=== PATIENT | female | born 1975 | race Hispanic/Latino ===

== ENCOUNTER 2017-11-23 14:15 | Inpatient (IN) | payer BC ==
[~2017-11-23] VITALS: Ht 171.4 cm; Wt 82.4 kg
[2017-11-23 15:19] LABS: BASOPHILS % (AUTO) 0.5 % (0.0-5.0); EOSINOPHILS % (AUTO) 3.2 % (0.0-8.0); HEMATOCRIT 34.6 % (36-48); LYMPHOCYTES % (AUTO) 23.5 % (21.0-51.0); MEAN CORPUSCULAR HEMOGLOBIN 29.8 pg (27.0-33.0); MEAN CORPUSCULAR HGB CONC 33.5 g/dL (32.0-36.0); MEAN CORPUSCULAR VOLUME 88.8 fL (79-99); MONOCYTES % (AUTO) 6.5 % (3.0-13.0); NEUTROPHILS % (AUTO) 66.3 % (40.0-77.0); PLATELET COUNT (AUTO) 301 K/uL (130-400); RED CELL DISTRIBUTION WIDTH 17.2 % (11.0-15.5); WHITE BLOOD COUNT (AUTO) 8.1 K/uL (4.8-10.8)
[2017-11-23 15:46] VITALS: BP 108/55
[2017-11-23] MEDS ORDERED: IBUP-2077 PO (15:48)
[2017-11-23] MEDS ORDERED: FERR-82 PO (15:48)
[2017-11-24] VITALS (22 sets, daily range): BP systolic 101–124; BP diastolic 48–72
[2017-11-24] MEDS ORDERED: LEVOFLOXACIN 500 MG/D5W 100 ML 100 ML IV SCH (06:00)
[2017-11-24] MEDS ORDERED: CALDOLOR 800MG+NS 250ML 250 ML IV SCH (06:00)
[2017-11-24] MEDS: CLINDAMYCIN 600 MG/D5% WATER 50 ML IV SCH ×2 (06:00→08:40)
[2017-11-24] MEDS ORDERED: LACTATED RINGERS 1000ML 1,000 ML IV SCH (06:00)
[2017-11-24] MEDS ORDERED: CLINDAMYCIN 900 MG/D5% WATER 50 ML IV SCH (06:00)
[2017-11-24] MEDS ORDERED: CYAN50008 PO (07:55)
[2017-11-24] MEDS ORDERED: MIDAZOLAM HCL 1 MG/ML 2ML VIAL ONE (08:10)
[2017-11-24] MEDS ORDERED: FENTANYL CITRATE PF 50 MCG/1 ML 2ML VIAL ONE ×2 (08:10→09:12)
[2017-11-24] MEDS ORDERED: PROPOFOL 10 MG/ML 20ML VIAL IV ONE (08:10)
[2017-11-24] MEDS ORDERED: PHENYLEPHRINE HCL 10 MG/ML 1ML VIAL IV ONE ×2 (08:16→10:00)
[2017-11-24] MEDS ORDERED: ROCURONIUM BROMIDE 10MG/1ML 5ML VL ONE (08:25)
[2017-11-24] MEDS ORDERED: EPHEDRINE SULFATE 50 MG/ML AMPULE ONE (09:10)
[2017-11-24] MEDS ORDERED: NEOSTIGMINE 5MG/5ML SYR IV ONE (10:00)
[2017-11-24] MEDS ORDERED: SODIUM CHLORIDE 0.9% 10 ML VIAL ONE (10:00)
[2017-11-24] MEDS ORDERED: LIDOCAINE PF 2% 5ML ABBOJECT ONE (10:00)
[2017-11-24] MEDS ORDERED: DEXAMETHASONE SOD PHOSPHATE 10MG/ML 1ML VIAL ONE (10:00)
[2017-11-24] MEDS ORDERED: ACETAMINOPHEN-CODEINE 300/30MG TAB PO PRN (10:15)
[2017-11-24] MEDS ORDERED: DOCUSATE SODIUM 100 MG CAP PO PRN (10:15)
[2017-11-24] MEDS ORDERED: BISACODYL 10 MG SUPP.RECT RC PRN (10:15)
[2017-11-24] MEDS ORDERED: PROMETHAZINE HCL 25 MG/ML 1ML AMPULE IM ONE (10:19)
[2017-11-24] MEDS ORDERED: MEPERIDINE-PF 50 MG/ML SYG ONE ×2 (10:21→10:40)
[2017-11-24] MEDS: DEXTROSE 5 %-0.45 % NACL 1,000 ML IV PRN ×2 (11:33→21:24)
[2017-11-24] MEDS: MEPERIDINE-PF 75 MG/ML SYG IM PRN ×3 (12:33→23:28)
[2017-11-24] MEDS: PROMETHAZINE HCL 25 MG/ML 1ML AMPULE IM PRN ×3 (12:33→23:27)
[2017-11-24] MEDS: ACETAMINOPHEN-CODEINE 300/30MG TAB PO PRN (14:40)
[2017-11-24] MEDS: IBUPROFEN 800 MG TAB PO SCH ×2 (16:53→20:21)
[2017-11-24] MEDS: CALDOLOR 800MG+NS 250ML 250 ML IVPB SCH (17:53)
[2017-11-25] MEDS: CALDOLOR 800MG+NS 250ML 250 ML IVPB SCH (02:08)
[2017-11-25 03:38] VITALS: BP 96/57
[2017-11-25 06:31] LABS: HEMATOCRIT 29.8 % (36-48); MEAN CORPUSCULAR HEMOGLOBIN 29.8 pg (27.0-33.0); MEAN CORPUSCULAR HGB CONC 33.4 g/dL (32.0-36.0); MEAN CORPUSCULAR VOLUME 89.3 fL (79-99); PLATELET COUNT (AUTO) 249 K/uL (130-400); RED BLOOD CELL COUNT(AUTO) 3.34 MIL/uL (4.00-5.50); RED CELL DISTRIBUTION WIDTH 16.8 % (11.0-15.5); WHITE BLOOD COUNT (AUTO) 11.1 K/uL (4.8-10.8)
[2017-11-25] MEDS: DEXTROSE 5 %-0.45 % NACL 1,000 ML IV PRN (07:32)
[2017-11-25 07:44] VITALS: BP 103/72
[2017-11-25] MEDS: SIMETHICONE 80 MG TAB.CHEW PO PRN ×2 (09:07→12:04)
[2017-11-25] MEDS: ACETAMINOPHEN-CODEINE 300/30MG TAB PO PRN ×2 (09:09→14:39)
[2017-11-25] MEDS: IBUPROFEN 800 MG TAB PO SCH ×2 (10:53→16:54)
[2017-11-25 11:33] VITALS: BP 120/50
[2017-11-25] MEDS ORDERED: DiphenhydrAMINE HCL 50 MG/ML VIAL IV PRN (14:45)
[2017-11-25] MEDS ORDERED: SIMETHICONE 80 MG TAB.CHEW PO PRN (15:00)
[2017-11-25 16:16] VITALS: BP 118/48
== END 2017-11-25 17:40 | disposition home or self-care (01) | DRG 743 ==
LOC: EDSTATUS 14:15 → INTOOBSV 11-24 06:53 → DAHIP 11-24 06:53 → OBSVTOIN 11-24 06:53 → WSH 11-24 11:25
PROVIDERS: ADMIT Obstetrics & Gynecology; ATTEND Obstetrics & Gynecology
PROC: 0JQC0ZZ Repair Pelvic Region Subcutaneous Tissue and Fascia, Open Approach (ICD-10-PCS; principal; 2017-11-24 08:20)
PROC: 0UT97ZZ Resection of Uterus, Via Natural or Artificial Opening (ICD-10-PCS; 2017-11-24 08:20)
PROC: 0UQF0ZZ Repair Cul-de-sac, Open Approach (ICD-10-PCS; 2017-11-24 08:20)
PROC: 0TSC0ZZ Reposition Bladder Neck, Open Approach (ICD-10-PCS; 2017-11-24 08:20)
DX: N92.1 Excessive and frequent menstruation with irregular cycle (principal); D63.0 Anemia in neoplastic disease; N39.3 Stress incontinence (female) (male); N81.2 Incomplete uterovaginal prolapse
CPT/HCPCS: 36415; 84703; 85025; 85027; 86850; 86900; 86901; 88307; A4344; A4351; J1100; J1741; J1956; J2001; J2175; J2250; J2370; J2550; J2704; J2710; J3010; J3490; J7030; J7120

== ENCOUNTER 2017-11-27 09:10 | Inpatient (IN) | payer BC ==
[~2017-11-27] VITALS: Ht 167.6 cm; Wt 82.3 kg
[~2017-11-27 09:10] MED LIST: CYAN50008 PO; FERR-82 PO; IBUP-2077 PO
[2017-11-27] MEDS ORDERED: KETOROLAC TROMETHAMINE 30MG/ML ONE (09:48)
[2017-11-27] MEDS ORDERED: SODIUM CHLORIDE 0.9% 1000ML 1,000 ML IV ONE (09:48)
[2017-11-27] MEDS ORDERED: ONDANSETRON HCL MDV 20ML 2 MG/ML VIAL ONE (09:48)
[2017-11-27 09:57] LABS: BASOPHILS % (AUTO) 0.3 % (0.0-5.0); HEMATOCRIT 30.8 % (36-48); LYMPHOCYTES % (AUTO) 6.1 % (21.0-51.0); MEAN CORPUSCULAR HEMOGLOBIN 30.7 pg (27.0-33.0); MEAN CORPUSCULAR HGB CONC 34.2 g/dL (32.0-36.0); MEAN CORPUSCULAR VOLUME 89.5 fL (79-99); MONOCYTES % (AUTO) 5.1 % (3.0-13.0); NEUTROPHILS % (AUTO) 85.5 % (40.0-77.0); PLATELET COUNT (AUTO) 257 K/uL (130-400); RED BLOOD CELL COUNT(AUTO) 3.44 MIL/uL (4.00-5.50); RED CELL DISTRIBUTION WIDTH 16.8 % (11.0-15.5)
[2017-11-27 10:04] LABS: POTASSIUM 4.2 mmol/L (3.5-5.1)
[2017-11-27 10:10] LABS: ALBUMIN 3.1 g/dL (3.5-5.0); BILIRUBIN,TOTAL 0.3 mg/dL (0.2-1.0); TOTAL PROTEIN, SERUM 7.6 g/dL (6.0-8.3)
[2017-11-27] MEDS ORDERED: MORPHINE SULFATE 4 MG/1ML SYG ONE (10:48)
[2017-11-27] MEDS ORDERED: LACTATED RINGERS 1000ML 1,000 ML IV ONE (12:57)
[2017-11-27 14:06] LABS: INR 0.95 (0.85-1.15); PARTIAL THROMBOPLASTIN TIME 25.7 SEC (26.3-35.5)
[2017-11-27 14:45] VITALS: BP 116/76
[2017-11-27 16:18] VITALS: BP 110/75
[2017-11-27] MEDS: PHENAZOPYRIDINE HCL 200 MG TABLET PO SCH (18:13)
[2017-11-27] MEDS: IBUPROFEN 800 MG TAB PO PRN (18:14)
[2017-11-27] MEDS: LACTATED RINGERS 1000ML 1,000 ML IV SCH ×2 (18:41→23:05)
[2017-11-27 19:50] VITALS: BP 120/68
[2017-11-27] MEDS: NITROFURANTOIN MONOHYD/M-CRYST 100 MG CAPSULE PO SCH (20:47)
[2017-11-27 23:00] VITALS: BP 100/63
[2017-11-28] MEDS: PHENAZOPYRIDINE HCL 200 MG TABLET PO SCH ×3 (01:14→17:27)
[2017-11-28 05:53] LABS: ALBUMIN 2.5 g/dL (3.5-5.0); BILIRUBIN,TOTAL 0.2 mg/dL (0.2-1.0); CREATININE 1.7 mg/dL (0.5-1.5); POTASSIUM 4.1 mmol/L (3.5-5.1); TOTAL PROTEIN, SERUM 6.2 g/dL (6.0-8.3)
[2017-11-28 05:56] LABS: BASOPHILS % (AUTO) 0.4 % (0.0-5.0); EOSINOPHILS % (AUTO) 4.8 % (0.0-8.0); HEMATOCRIT 26.6 % (36-48); LYMPHOCYTES % (AUTO) 8.8 % (21.0-51.0); MEAN CORPUSCULAR HEMOGLOBIN 31.3 pg (27.0-33.0); MEAN CORPUSCULAR HGB CONC 34.9 g/dL (32.0-36.0); MEAN CORPUSCULAR VOLUME 89.7 fL (79-99); MONOCYTES % (AUTO) 5.7 % (3.0-13.0); NEUTROPHILS % (AUTO) 80.3 % (40.0-77.0); PLATELET COUNT (AUTO) 234 K/uL (130-400); RED BLOOD CELL COUNT(AUTO) 2.97 MIL/uL (4.00-5.50); RED CELL DISTRIBUTION WIDTH 16.5 % (11.0-15.5); WHITE BLOOD COUNT (AUTO) 9.6 K/uL (4.8-10.8)
[2017-11-28] MEDS: IBUPROFEN 800 MG TAB PO PRN ×3 (07:44→22:59)
[2017-11-28] MEDS: LACTATED RINGERS 1000ML 1,000 ML IV SCH (07:45)
[2017-11-28 08:01] VITALS: BP 121/81
[2017-11-28] MEDS ORDERED: SODIUM CHLORIDE 0.9% 10 ML VIAL IV PRN (10:15)
[2017-11-28 11:30] VITALS: BP 103/62
[2017-11-28] MEDS ORDERED: DOCUSATE SODIUM 100 MG CAP PO ONE (12:27)
[2017-11-28] MEDS: DOCUSATE SODIUM 100 MG CAP PO SCH ×2 (12:29→21:02)
[2017-11-28 15:31] VITALS: BP 125/46
[2017-11-28] MEDS: HYDROCODONE/ACETAMINOPHEN 5/325 MG TAB PO PRN (17:31)
[2017-11-28 19:48] VITALS: BP 123/52
[2017-11-28] MEDS: NITROFURANTOIN MONOHYD/M-CRYST 100 MG CAPSULE PO SCH (21:02)
[2017-11-29] VITALS (7 sets, daily range): BP systolic 106–130; BP diastolic 45–79
[2017-11-29] MEDS: PHENAZOPYRIDINE HCL 200 MG TABLET PO SCH ×3 (01:33→17:17)
[2017-11-29 04:41] LABS: CREATININE 1.3 mg/dL (0.5-1.5)
[2017-11-29] MEDS ORDERED: IOPAMIDOL-370 100 ML VIAL IV ONE (07:39)
[2017-11-29] MEDS: HYDROCODONE/ACETAMINOPHEN 5/325 MG TAB PO PRN (10:28)
[2017-11-29] MEDS: PROMETHAZINE HCL 25 MG/ML 1ML AMPULE IM PRN ×2 (11:58→17:20)
[2017-11-29] MEDS: IBUPROFEN 800 MG TAB PO PRN (16:38)
[2017-11-29] MEDS: MEPERIDINE-PF 50 MG/ML SYG IM PRN (17:20)
[2017-11-29] MEDS: DOCUSATE SODIUM 100 MG CAP PO SCH (20:55)
[2017-11-29] MEDS: NITROFURANTOIN MONOHYD/M-CRYST 100 MG CAPSULE PO SCH (20:55)
[2017-11-29] MEDS: LACTATED RINGERS 1000ML 1,000 ML IV SCH (23:50)
[2017-11-30] VITALS (22 sets, daily range): BP systolic 105–141; BP diastolic 49–90
[2017-11-30] MEDS: LACTATED RINGERS 1000ML 1,000 ML IV SCH ×6 (00:11→11:39)
[2017-11-30] MEDS: PHENAZOPYRIDINE HCL 200 MG TABLET PO SCH ×3 (01:15→19:50)
[2017-11-30] MEDS: MEPERIDINE-PF 50 MG/ML SYG IM PRN (01:25)
[2017-11-30] MEDS: PROMETHAZINE HCL 25 MG/ML 1ML AMPULE IM PRN (01:26)
[2017-11-30] MEDS: DOCUSATE SODIUM 100 MG CAP PO SCH ×2 (09:00→21:00)
[2017-11-30] MEDS ORDERED: CEFAZOLIN SODIUM 1 GM VIAL IVP SCH (11:30)
[2017-11-30] MEDS ORDERED: NEOSTIGMINE 5MG/5ML SYR IV ONE (12:13)
[2017-11-30] MEDS ORDERED: LIDOCAINE PF 2% 5ML ABBOJECT ONE (12:13)
[2017-11-30] MEDS ORDERED: ONDANSETRON HCL 4 MG/2 ML VIAL ONE (12:13)
[2017-11-30] MEDS ORDERED: GLYCOPYRROLATE 0.2 MG/ML 5 ML VIAL ONE (12:13)
[2017-11-30] MEDS ORDERED: ISOVUE-370 50ML VIAL IV ONE (12:13)
[2017-11-30] MEDS ORDERED: DEXAMETHASONE SOD PHOSPHATE 10MG/ML 1ML VIAL ONE (12:13)
[2017-11-30] MEDS ORDERED: FENTANYL CITRATE PF 50 MCG/1 ML 2ML VIAL ONE (12:14)
[2017-11-30] MEDS ORDERED: MIDAZOLAM HCL 1 MG/ML 2ML VIAL ONE (12:14)
[2017-11-30] MEDS ORDERED: PROPOFOL 10 MG/ML 20ML VIAL IV ONE ×2 (12:14→12:47)
[2017-11-30] MEDS ORDERED: ROCURONIUM BROMIDE 10MG/1ML 5ML VL ONE (12:19)
[2017-11-30] MEDS ORDERED: CLINDAMYCIN 600 MG/D5% WATER 50 ML IV ONE (12:25)
[2017-11-30] MEDS ORDERED: CALDOLOR 800MG+NS 250ML 250 ML IV ONE (14:01)
[2017-11-30] MEDS ORDERED: MEPERIDINE-PF 75 MG/ML SYG IM PRN (15:15)
[2017-11-30] MEDS ORDERED: ONDANSETRON HCL MDV 20ML 2 MG/ML VIAL IVP PRN (15:15)
[2017-11-30] MEDS: SODIUM CHLORIDE 0.9% 1000ML 1,000 ML IV SCH (15:29)
[2017-11-30] MEDS: NITROFURANTOIN MONOHYD/M-CRYST 100 MG CAPSULE PO SCH (21:18)
[2017-11-30] MEDS: IBUPROFEN 800 MG TAB PO PRN (23:47)
[2017-12-01] VITALS (10 sets, daily range): BP systolic 102–132; BP diastolic 42–93
[2017-12-01] MEDS: LACTATED RINGERS 1000ML 1,000 ML IV SCH (02:40)
[2017-12-01] MEDS: PHENAZOPYRIDINE HCL 200 MG TABLET PO SCH ×3 (04:04→18:05)
[2017-12-01] MEDS: SODIUM CHLORIDE 0.9% 1000ML 1,000 ML IV SCH ×2 (04:05→19:29)
[2017-12-01 04:29] LABS: BASOPHILS % (AUTO) 0.7 % (0.0-5.0); EOSINOPHILS % (AUTO) 3.5 % (0.0-8.0); HEMATOCRIT 25.3 % (36-48); LYMPHOCYTES % (AUTO) 14.5 % (21.0-51.0); MEAN CORPUSCULAR HEMOGLOBIN 30.5 pg (27.0-33.0); MEAN CORPUSCULAR HGB CONC 34.3 g/dL (32.0-36.0); MEAN CORPUSCULAR VOLUME 88.8 fL (79-99); MONOCYTES % (AUTO) 8.4 % (3.0-13.0); NEUTROPHILS % (AUTO) 72.9 % (40.0-77.0); PLATELET COUNT (AUTO) 275 K/uL (130-400); RED BLOOD CELL COUNT(AUTO) 2.85 MIL/uL (4.00-5.50); RED CELL DISTRIBUTION WIDTH 15.5 % (11.0-15.5); WHITE BLOOD COUNT (AUTO) 8.6 K/uL (4.8-10.8)
[2017-12-01 04:41] LABS: PROTHROMBIN TIME 10.5 SEC (9.6-11.6)
[2017-12-01] MEDS: PROMETHAZINE HCL 25 MG/ML 1ML AMPULE IM PRN (07:38)
[2017-12-01] MEDS: DOCUSATE SODIUM 100 MG CAP PO SCH ×2 (09:00→21:00)
[2017-12-01] MEDS ORDERED: MEPERIDINE 10MG/ML 50ML PCA 50 ML IV SCH ×2 (09:15→09:30)
[2017-12-01] MEDS ORDERED: DIPHENHYDRAMINE HCL 25 MG CAPSULE PO PRN ×2 (09:15→09:30)
[2017-12-01] MEDS ORDERED: METOCLOPRAMIDE 10 MG/2 ML VIAL IV PRN ×2 (09:15→09:30)
[2017-12-01] MEDS ORDERED: DiphenhydrAMINE HCL 50 MG/ML VIAL IVP PRN ×2 (09:15→09:30)
[2017-12-01] MEDS ORDERED: PROMETHAZINE HCL 25 MG/ML 1ML AMPULE IM PRN ×2 (09:15→09:30)
[2017-12-01] MEDS ORDERED: ONDANSETRON HCL 4 MG/2 ML VIAL IVP PRN (09:15)
[2017-12-01] MEDS ORDERED: NALOXONE HCL 0.4 MG/1 ML ML IVP PRN ×2 (09:15→09:30)
[2017-12-01] MEDS ORDERED: SODIUM BICARB 50MEQ 50ML VIAL ONE (13:06)
[2017-12-01] MEDS ORDERED: LIDOCAINE HCL 1% MDV 50ML VIAL ONE (13:07)
[2017-12-01] MEDS ORDERED: ISOVUE-300 100 ML VIAL IV ONE (13:07)
[2017-12-01] MEDS: NITROFURANTOIN MONOHYD/M-CRYST 100 MG CAPSULE PO SCH (21:29)
[2017-12-02 00:09] VITALS: BP 107/42
[2017-12-02] MEDS: PHENAZOPYRIDINE HCL 200 MG TABLET PO SCH ×2 (02:16→08:55)
[2017-12-02 04:16] VITALS: BP 113/73
[2017-12-02] MEDS: SODIUM CHLORIDE 0.9% 1000ML 1,000 ML IV SCH (07:26)
[2017-12-02 07:38] VITALS: BP 121/73
[2017-12-02] MEDS: IBUPROFEN 800 MG TAB PO PRN (08:56)
[2017-12-02 11:16] VITALS: BP 115/75
== END 2017-12-02 15:25 | disposition home or self-care (01) | DRG 694 ==
LOC: EDH 09:10 → OBSVTOIN 11:19 → EDHIP 11:19 → WSH 14:45
PROVIDERS: ADMIT Obstetrics & Gynecology; ATTEND Obstetrics & Gynecology
PROC: 0T768DZ Dilation of Right Ureter with Intraluminal Device, Via Natural or Artificial Opening Endoscopic (ICD-10-PCS; principal; 2017-11-30 12:30)
PROC: 0T913ZZ Drainage of Left Kidney, Percutaneous Approach (ICD-10-PCS; 2017-11-30 12:30)
PROC: BT1B0ZZ Fluoroscopy of Bladder and Urethra using High Osmolar Contrast (ICD-10-PCS; 2017-11-30 12:30)
PROC: 0T9130Z Drainage of Left Kidney with Drainage Device, Percutaneous Approach (ICD-10-PCS; 2017-12-01)
PROC: BT121ZZ Fluoroscopy of Left Kidney using Low Osmolar Contrast (ICD-10-PCS; 2017-12-01)
DX: N13.30 Unspecified hydronephrosis (principal); N13.5 Crossing vessel and stricture of ureter without hydronephrosis; E11.9 Type 2 diabetes mellitus without complications; I10 Essential (primary) hypertension; N99.3 Prolapse of vaginal vault after hysterectomy; F32.9 Major depressive disorder, single episode, unspecified; Z90.710 Acquired absence of both cervix and uterus; Z88.8 Allergy status to other drugs, medicaments and biological substances
CPT/HCPCS: 10030; 36415; 50432; 50695; 74018; 74021; 74176; 74400; 74420; 76770; 80053; 82150; 82565; 83690; 84520; 85025; 85610; 85730; 99156; 99157; A4344; A4351; A4606; C1729; C1758; C1769; C1894; C2617; J1100; J1644; J1741; J1885; J2001; J2175; J2250; J2270; J2405; J2550; J2704; J2710; J3010; J3490; J7030; J7120; Q9967

== ENCOUNTER → 2018-09-11 | Outpatient (CLI) | payer BC | END | disposition home or self-care (01) | LOC: SHCH 13:44 | PROVIDERS: ATTEND Internal Medicine Cardiovascular Disease | DX: I87.2 Venous insufficiency (chronic) (peripheral) (principal) | CPT/HCPCS: 93970 ==

== ENCOUNTER → 2020-10-16 | Outpatient (CLI) | payer OTHER | END | disposition home or self-care (01) | LOC: OIH 13:44 | PROVIDERS: ATTEND Internal Medicine | DX: R07.9 Chest pain, unspecified (principal) | CPT/HCPCS: 71046 ==

== ENCOUNTER → 2021-06-10 | Outpatient (CLI) | payer OTHER ==
[~2021-06-10] MED LIST changes: -CYAN50008 PO; +CYAN50009 PO
== END | disposition home or self-care (01) ==
LOC: SHCH 08:32
PROVIDERS: ATTEND Internal Medicine Cardiovascular Disease
DX: I87.2 Venous insufficiency (chronic) (peripheral) (principal)
CPT/HCPCS: 93970

== ENCOUNTER → 2025-01-24 | Outpatient (CLI) | payer OTHER ==
--- NOTE | 2025-01-31 21:00 | HMCIMG ---
EXAM: Nuclear Medicine Gastric Emptying Scan. INDICATION: Abdominal distension. REFERENCE EXAMINATION: None. TECHNIQUE: 2.1 mCi of Tc99m sulfur colloid with egg whites, 2 slices of bread/jam, 4 ounces of water. FINDINGS: Transit of radiopharmaceutical is seen from the stomach into the small bowel. 50% gastric emptying attained in 52 minutes. IMPRESSION: Scintigraphic findings suggest normal gastric emptying. /[place]
== END | disposition home or self-care (01) ==
LOC: RAH 07:02
PROVIDERS: ATTEND Internal Medicine
DX: R14.0 Abdominal distension (gaseous) (principal)
CPT/HCPCS: 78264; A9541